=== PATIENT | female | born 1975 | race Hispanic/Latino ===

== ENCOUNTER 2019-12-17 02:40 | Observation (INO) | payer OTHER, SELFPAY ==
--- NOTE | 2019-12-17 03:00 | PC.NURSE ---
Report received from Bren Petersen prior to pt being transferred. Pt arrived to [facility] ED with c/o contractions. record, labs and notes from ED visit with chart. Pt is a vaginal deliveries, FHTs doppled per RN at [facility], SVE 4 ballotable per Pierre Petersen RN. 20g IV in [facility]. No significant or medical history.
[2019-12-17 03:06] VITALS: BP 108/55; PULSE 79
[2019-12-17] MEDS: TERBUTALINE SULFATE 1 MG/ML VIAL 0.25 MG SUB-Q (03:51)
--- NOTE | 2019-12-17 08:48 | PM.OBTRLD ---
OB - Triage/Final Diagnosis Visit Information Reason for evaluation: threatened labor Evaluation Vital signs: Vital Signs - 24 hr 12/17/19 03:06 Pulse Rate 79 Blood Pressure 108/55 L
== END 2019-12-17 05:50 | disposition home or self-care (01) ==
PROVIDERS: Admitting Provider Obstetrics & Gynecology; PCP Registered Nurse; Visit Provider Obstetrics & Gynecology
DX: O47.03 False labor before 37 completed weeks of gestation, third trimester (principal); Z3A.32 32 weeks gestation of pregnancy
CPT/HCPCS: 96372; G0378; G0379; J3105

== ENCOUNTER 2019-12-26 11:41 | Observation (INO) | payer OTHER, SELFPAY ==
[2019-12-26 12:00] VITALS: BP 108/54; PULSE 83
[2019-12-26 12:01] VITALS: BP 101/55; PULSE 88
--- NOTE | 2019-12-26 12:56 | LDADM ---
This patient, Herminia Interiano, was admitted to OB Post [facility] on 12/26/19 at 11:41. Plans for labor, pain management and were discussed with patient. Patient/family oriented to hospital policies and general routines including ID bracelet, bed and alarms, visiting hours, pain management, procedures, bathroom and other care routines, personal items, smoking policy, room service/diet and guest tray routines, infant security routines, and visiting hours. Patient/Family are encouraged to report perceived risks to care and to ask questions if they do not understand what they are told or what they should do. See OBIX for further documentation.
[2019-12-26 13:00] VITALS: BP 104/68; PULSE 81
[2019-12-26] MEDS: TERBUTALINE SULFATE 1 MG/ML VIAL 0.25 MG SUB-Q ×2 (13:05→13:37)
[2019-12-26 13:48] VITALS: BMI 36.5
[2019-12-26] MEDS: NIFEdipine 10 MG CAPSULE PO (14:09)
--- NOTE | 2019-12-26 15:12 | PM.OBTRLD ---
OB - Triage/Final Diagnosis Visit Information Reason for evaluation: threatened labor Evaluation Vital signs: Vital Signs - 24 hr 12/26/19 12:00 12/26/19 12:01 12/26/19 13:00 Pulse Rate 83 88 81 Blood Pressure 108/54 L 101/55 L 104/68
== END 2019-12-26 15:28 | disposition home or self-care (01) ==
PROVIDERS: Admitting Provider Obstetrics & Gynecology; PCP Registered Nurse; Visit Provider Obstetrics & Gynecology
DX: O47.03 False labor before 37 completed weeks of gestation, third trimester (principal); Z3A.34 34 weeks gestation of pregnancy
CPT/HCPCS: 96372; A9270; G0378; G0379; J3105

== ENCOUNTER 2020-01-03 19:42 | Observation (INO) | payer OTHER, SELFPAY ==
--- NOTE | 2020-01-03 20:06 | OBADM ---
This patient, Herminia Interiano, admitted to the OB room Labor/Delivery/Recovery 106 for observation. Patient/family oriented to hospital policies and general routines including ID bracelet, bed and alarms, visiting hours, pain management, procedures, bathroom and other care routines, personal items, smoking policy, room service/diet, and visiting hours. Patient/Family are encouraged to report perceived risks to care and to ask questions if they do not understand what they are told or what they should do.
[2020-01-03 20:15] VITALS: BP 103/86; PULSE 89
[2020-01-03 20:30] VITALS: BP 104/70; PULSE 85
--- NOTE | 2020-01-04 10:20 | PM.OBTRLD ---
OB - Triage/Final Diagnosis Visit Information Date of evaluation: 01/03/20 Reason for evaluation: threatened labor Evaluation Vital signs: Vital Signs - 24 hr 01/03/20 20:15 01/03/20 20:30 Pulse Rate 89 85 Blood Pressure 103/86 104/70
== END 2020-01-03 20:45 | disposition home or self-care (01) ==
PROVIDERS: Admitting Provider Obstetrics & Gynecology; PCP Registered Nurse; Visit Provider Obstetrics & Gynecology
DX: O47.03 False labor before 37 completed weeks of gestation, third trimester (principal); Z3A.35 35 weeks gestation of pregnancy
CPT/HCPCS: G0378; G0379

== ENCOUNTER 2020-01-25 01:54 | Inpatient (IN) | payer OTHER, SELFPAY ==
[2020-01-25] VITALS (80 sets, daily range): BP systolic 86–182; BP diastolic 40–159; PULSE 67–158; RESP 16–18; TEMP 35.7–37.4; O2SAT 98–100; BMI 39.2
--- NOTE | 2020-01-25 02:32 | LDADM ---
This patient, Herminia Interiano, was admitted to Labor/Delivery/Recovery 106 on 01/25/20 at 01:54. Plans for labor, pain management and were discussed with patient. Patient/family oriented to hospital policies and general routines including ID bracelet, bed and alarms, visiting hours, pain management, procedures, bathroom and other care routines, personal items, smoking policy, room service/diet and guest tray routines, security routines, and visiting hours. Patient/Family are encouraged to report perceived risks to care and to ask questions if they do not understand what they are told or what they should do. See OBIX for further documentation.
[2020-01-25] MEDS: LACTATED RINGERS 1,000 ML 125 ML IV CONT (02:40)
[2020-01-25] MEDS: AMPICILLIN 2 GM/NS 100 ML 2 GM/100 ML BAG IVPB (02:40)
[2020-01-25 02:41] LABS: Basophils Percent Auto 0.3 % (0.2-1.2); Eosinophils Absolute Auto 0.1 K/mm3 (0-0.3); Eosinophils Percent Auto 0.6 % (0-4.4); Hematocrit 34.3 % (37.0-47.0); Hemoglobin 11.9 g/dL (12.0-15.0); Immature Granulocyte Absolute 0.08 K/mm3 (0.00-0.031); Immature Granulocyte Percent A 0.6 % (0-0.5); Lymphocytes Absolute Auto 3.24 K/mm3 (0.9-3.2); Mean Corpuscular HGB Conc 34.7 g/dl (32-36); Mean Corpuscular Hemoglobin 27.5 pg (26-34); Mean Corpuscular Volume 79.2 fl (80-100); Mean Platelet Volume 9.5 fl (7.4-10.4); Monocytes Absolute Auto 0.6 K/mm3 (0.1-0.6); Neutrophils Absolute Auto 8.4 K/mm3 (1.3-6.7); Neutrophils Percent Auto 67.5 % (45.5-73.1); Platelet Count Result 308 k/mm3 (150-375); Red Blood Count 4.33 M/mm3 (4.2-5.4); Red Cell Distribution Width 13.5 % (11.5-14.5); White Blood Count 12.5 K/mm3 (4.5-10.0)
--- NOTE | 2020-01-25 03:17 | WPDANESEPPF ---
Anes - Initial Pre Proc Eval Procedure: C section Date/Time: 01/25/20 03:17 Surgeon: Abdon Pre Op Diagnosis: Breech presentation Pre Op Diagnosis: labor Patient Data Age: 44 Gender: F Height: Weight: Last Vital Signs Pulse 109 H 01/25/20 03:16 BP 86/40 L 01/25/20 03:16 Pulse Ox 100 01/25/20 03:16 Allergies Allergy/AdvReac Type Severity Reaction Status Date / Time No Known Allergies Allergy Unverified 08/05/13 17:11 Home Medications Medication Instructions Recorded Confirmed Type [id number] ac-dha 1 pkg PO DAILY 01/03/20 01/03/20 History Laboratory Tests 01/25/20 01/25/20 01/25/20 02:25 02:25 02:25 WBC 12.5 K/mm3 H K/mm3 (4.5-10.0) RBC 4.33 M/mm3 M/mm3 (4.2-5.4) Hgb 11.9 g/dL L g/dL (12.0-15.0) Hct 34.3 % L % (37.0-47.0) MCV 79.2 fl L fl (80-100) MCH 27.5 pg pg (26-34) MCHC 34.7 g/dl g/dl (32-36) RDW 13.5 % % (11.5-14.5) Plt Count 308 k/mm3 k/mm3 (150-375) MPV 9.5 fl fl (7.4-10.4) Immature Gran % (Auto) 0.6 % H % (0-0.5) Neut % (Auto) 67.5 % % (45.5-73.1) Lymph % (Auto) 26.0 % % (18.3-44.2) [place] % (Auto) 5.0 % % (2.6-8.5) Eos % (Auto) 0.6 % % (0-4.4) Baso % (Auto) 0.3 % % (0.2-1.2) Lymph # (Auto) 3.24 K/mm3 H K/mm3 (0.9-3.2) [place] # (Auto) 0.6 K/mm3 K/mm3 (0.1-0.6) Eos # (Auto) 0.1 K/mm3 K/mm3 (0-0.3) Baso # (Auto) 0.0 K/mm3 K/mm3 (0.0-0.1) Abs Immat Gran (auto) 0.08 K/mm3 H K/mm3 (0.00-0.031) Absolute Neuts (auto) 8.4 K/mm3 H K/mm3 (1.3-6.7) Absolute Nucleated RBC 0.0 K/mm3 K/mm3 (0.0-0.012) Nucleated RBC % 0.0 % % (0.0-0.2) RPR Pending HIV 1&2 Ab/P24 Ag 4thGn Pending Patient hx anesthesia problems: none Family hx anesthesia problems: none PMFSH Social History Social History Smoking status: Never smoker Substance use: never Gender identity (if verbalized by the patient): Female Spiritual care concerns: No Anes - Eval Final PreProcedure Day of Procedure 01/25/20 03:17 Patient weight: obese Heart: regular rate and rhythm Lungs: clear to auscultation and normal air movement Airway: Mallampati scale class II Neurological: alert and oriented Last oral intake: >/= 8 hours ASA classification: II Emergent: yes Anesthetic plan: proceed Anesthesia type and monitoring: regional epidural and standard monitoring Informed Consent: The patient's anesthetic plan and its attendant risks and benefits were discussed with the patient/family/POA. Questions were solicited and answers provided to the satisfaction of the patient/family/POA.
[2020-01-25 03:25] LABS: HIV 1/2 Ab P24 Ag Result Negative (Negative)
--- NOTE | 2020-01-25 03:25 | PM.IMHP ---
H&P: HPI History of Present Illness Chief complaint: labor Narrative: 44 y/o at 38 2/7 weeks here with SROM at 0130, subsequent contractions. Transfer of care to our practice. GBS pos. I was phoned after nursing suspected breech presentation. Interview conducted using remote [place] customer service supervisor, and communication was effective. Review of Systems Review of Systems: All systems reviewed & are unremarkable except as noted in HPI and below PMFSH Social History Social History Smoking status: Never smoker Substance use: never Gender identity (if verbalized by the patient): Female Spiritual care concerns: No Meds Home Medications and Allergies Home Medications Medication Instructions Recorded Confirmed Type 604-fpwu-oibrj ac-dha 1 pkg PO DAILY 01/03/20 01/03/20 History Allergies Allergy/AdvReac Type Severity Reaction Status Date / Time No Known Allergies Allergy Unverified 08/05/13 17:11 Vital Signs Vital Signs - 24 hr 01/25/20 02:07 01/25/20 02:16 01/25/20 02:31 Pulse Rate 75 93 89 Blood Pressure 129/70 124/95 H 133/58 L Pulse Oximetry 01/25/20 02:45 01/25/20 02:51 01/25/20 02:54 Pulse Rate 84 76 Blood Pressure 117/64 133/70 Pulse Oximetry 100 01/25/20 02:56 01/25/20 02:57 01/25/20 02:58 Pulse Rate 85 84 Blood Pressure 111/58 L 129/64 Pulse Oximetry 100 01/25/20 03:00 01/25/20 03:01 01/25/20 03:02 Pulse Rate 87 88 Blood Pressure 123/59 L 115/68 Pulse Oximetry 100 01/25/20 03:05 01/25/20 03:06 01/25/20 03:07 Pulse Rate 85 80 Blood Pressure 118/76 119/63 Pulse Oximetry 100 01/25/20 03:10 01/25/20 03:11 01/25/20 03:13 Pulse Rate 158 H 82 Blood Pressure 99/70 L 139/100 H Pulse Oximetry 100 01/25/20 03:16 01/25/20 03:17 01/25/20 03:20 Pulse Rate 109 H 97 Blood Pressure 86/40 L 99/60 L 118/93 H Pulse Oximetry 100 01/25/20 03:21 01/25/20 03:23 Pulse Rate 110 H Blood Pressure 126/42 L Pulse Oximetry 100 Exam Const: Orientation/consciousness: patient oriented x3 Other: Well-developed, well-nourished female in no acute distress. Neck: Thyroid: thyroid normal Lymphatic: no lymphadenopathy noted (in neck, axilla or inguinal nodes) Resp: Effort & Inspection: normal respiratory effort Auscultation: clear to auscultation bilaterally Cardio: Rate: regular rate Rhythm: regular rhythm Heart sounds: S1 normal heart sound present and S2 normal heart sound present GI: Other: ABD: Soft, nontender, nondistended. No guarding or rebound tenderness. No hepatosplenomegaly. Gravid. FHR with occasional variable deceleration. TOCO: contractions every 2-4 min. Bedside US performed by me confirms kacy breech presentation. : General: Yes no CVA tenderness Other: Cervix 6/90/-1, breech. Back/Spine/Pelvis: Back: no CVA tenderness Skin: General skin exam: normal color and no rashes or lesions noted Neuro: General: patient oriented x3 Extrem: Other: Extremities: nontender with no edema Psych: Mental Status: mental status grossly normal Affect: normal affect H&P: Results Labs Labs: Short CBC 01/25/20 Range/Units 02:25 WBC 12.5 H (4.5-10.0) K/mm3 Hgb 11.9 L (12.0-15.0) g/dL Hct 34.3 L (37.0-47.0) % Plt Count 308 (150-375) k/mm3 Assessment and Plan Assessment and plan (1) Breech presentation: Code(s): O32.1XX0 - Maternal care for breech presentation, not applicable or unspecified Status: Acute Assessment and Plan: We reviewed increased risks of morbidity in the setting of breech vaginal delivery. I offered primary . Furthermore, she would like permanent contraception with tubal ligation. She understands there are temporary methods of contraception available to her. She understands that there are nonsurgical options as well as surgical options. She understands that tubal ligation
[2020-01-25] MEDS: ceFAZolin 3 GM/D5W 100 ML 100 ML IVPB (03:35)
--- NOTE | 2020-01-25 04:32 | PM.OBPRVD ---
OB - Delivery Note Procedure Delivery date: 01/25/20 Procedure: Procedures Operation Date: 01/25/20 03:20 Actual Procedures Side Surgeon p Section Not Applicable Singh Coppola MD Primary LTCS with bilateral tubal ligation via modified Rosie technique Delivery monitor: external FHT and external uterine Route of delivery: (LTCS) Estimated blood loss (mL): 580 Anesthesia type: Epidural Disposition: PACU Complications: None Narrative: The patient was taken to the operating room where she was prepared and draped in the usual sterile fashion in dorsal supine position with a leftward tilt. She received cefazolin preoperatively. Epidural anesthesia was found to be adequate. A Pfannenstiel skin incision was made with a scalpel and was carried through to the underlying layer of the fascia. The fascia was incised in the midline and the incision was extended laterally. The fascia was dissected free of the underlying rectus muscles. The rectus muscles were in the midline. The peritoneum was identified, tented up and entered sharply. The peritoneal incision was extended superiorly and inferiorly with good visualization of the bladder. The bladder blade was placed. The vesicouterine peritoneum was identified, tented up and entered sharply. The incision was extended laterally and the bladder flap was developed. The bladder blade was replaced. The uterus was then incised sharply in a transverse fashion along the lower uterine segment. The incision was extended laterally. The infant's breech was delivered atraumatically to the sterile field to the level of the scapulae. The arms were swept across the chest and delivered. The head was gently flexed and easily delivered. The nose and mouth were bulb suctioned. After a delay, the cord was clamped and cut. The infant was handed off the field. Cord blood was collected. The placenta was removed manually and was passed off the field. The uterus was exteriorized and cleared of all clots and debris. The uterine incision was reapproximated using 0 Monocryl in a running, locked fashion. A second layer of the same suture was required for hemostasis. Excellent hemostasis resulted as did excellent reapproximation of the normal anatomy. The left fallopian tube was then identified by following it out to the fimbriated end. It was grasped in the midportion with a [place] clamp and a loop of tube was ligated with a free tie of 0 plain gut. The tubal segment was then transected and the specimen was passed off to be sent to pathology. Hemostasis was excellent. Attention was turned to the right fallopian tube which was similarly identified, ligated and transected. Once again, excellent hemostasis resulted. The uterus was returned the abdomen. The pelvis was irrigated copiously with warmed normal saline. Rigorous hemostasis was assured. The fascial layer was reapproximated using 0 Vicryl in a running fashion. The skin was closed with a running, subcuticular stitch of 4 0 Vicryl. Dermaflex was applied externally. Sponge, lap, needle and instrument counts were correct. The patient was taken to the recovery room in stable condition. The infant went to the nursery in stable condition. I was present and scrubbed through the entire procedure. Baby Date of : 01/25/20 Time of : 03:56 Weeks of gestation at delivery: 38 gender: Female Weight (pounds): 7 Weight (ounces): 4 presentation: kacy breech Placenta delivery description: Manual Removal and Normal Configuration cord vessel description: 3 Vessels score one minute: 8 score five minutes: 9
--- NOTE | 2020-01-25 04:36 | PM.OBDSVD ---
DS: Diagnosis Admitting Diagnosis Admitting Diagnosis: SROM GBS colonization Desired sterility Discharge Diagnosis (1) GBS (group B Streptococcus carrier), +RV culture, currently : Code(s): O99.820 - Streptococcus B carrier state complicating Status: Acute (2) SROM (spontaneous rupture of membranes): Status: Acute (3) Unwanted fertility: Code(s): Z30.09 - Encounter for other general counseling and advice on contraception Status: Acute (4) Breech presentation: Code(s): O32.1XX0 - Maternal care for breech presentation, not applicable or unspecified Status: Acute OB - DS: Summary OB Procedures : None OB Procedures Intrapartum: Spontaneous Vag Delivery OB Procedures: : None Peripartum Data Procedures: Procedures Operation Date: 01/25/20 03:20 Actual Procedures Side Surgeon p Section Not Applicable Singh Coppola MD Time Spent with Patient Time attestation: Total time spent providing and/or coordinating discharge services: DS: Data Data Completed and Pending Pending studies at discharge: Pending at discharge 01/25/20 04:34 Surgical [PTH] Routine Labs on day of discharge: Labs from last 24 hours 01/25/20 01/25/20 01/25/20 02:25 02:25 02:25 WBC 12.5 H RBC 4.33 Hgb 11.9 L Hct 34.3 L MCV 79.2 L MCH 27.5 MCHC 34.7 RDW 13.5 Plt Count 308 MPV 9.5 Immature Gran % (Auto) 0.6 H Neut % (Auto) 67.5 Lymph % (Auto) 26.0 [place] % (Auto) 5.0 Eos % (Auto) 0.6 Baso % (Auto) 0.3 Lymph # (Auto) 3.24 H [place] # (Auto) 0.6 Eos # (Auto) 0.1 Baso # (Auto) 0.0 Abs Immat Gran (auto) 0.08 H Absolute Neuts (auto) 8.4 H Absolute Nucleated RBC 0.0 Nucleated RBC % 0.0 RPR Pending HIV 1&2 Ab/P24 Ag 4thGn Blood Type B Positive Antibody Screen Negative 01/25/20 02:25 WBC RBC Hgb Hct MCV MCH MCHC RDW Plt Count MPV Immature Gran % (Auto) Neut % (Auto) Lymph % (Auto) [place] % (Auto) Eos % (Auto) Baso % (Auto) Lymph # (Auto) [place] # (Auto) Eos # (Auto) Baso # (Auto) Abs Immat Gran (auto) Absolute Neuts (auto) Absolute Nucleated RBC Nucleated RBC % RPR HIV 1&2 Ab/P24 Ag 4thGn Negative Blood Type Antibody Screen Discharge Plan Discharge Attending physician on discharge: Singh Coppola Consulting providers: Luke Valle Discharging Clinician: Nikunj Bernstein Patient Disposition: Home, Self-Care Activity: may shower, may drive after 2 weeks and pelvic rest Diet: regular Wound Care Instructions: incision open to air Discharge Instructions: Call or return if temperature above 100.4? F, increased abdominal pain, increased vaginal bleeding or any new problems. Education: Mom and Baby Guide Given to: Mother Follow-Up: Call your delivering provider's office for an appointment to be seen in: Call MD office Mom and baby should come to the [facility] for the follow-up appointment. Appointment Date/Time: January 28, 2020 at 9:00 am What to expect at your follow-up visit: Physical Assessment Call [phone] if you are unable to keep your appointment time. BREAST CARE: 1. Wear a snug supportive bra. 2. For engorgement discomfort: Breast Feeding: A. Apply warm moist washcloths B. Express milk as needed to relieve engorgement C. Wear loose clothing 3. For sore nipples: A. Identify correct latch-on B. Apply warm moist washcloths before and after nursing C. Air dry nipples after nursing D. May apply Lansinoh cream to nipples ABDOMINAL INCISION: (if applicable) 1. Allow incision to air dry 2. Do NOT use lotions for powders on your incision 3. When showering, allow soap and water to run over the incision, but do not wash incision PERINEAL CARE: 1. Until bleeding stops, use your jordan bottle
[2020-01-25] MEDS: OXYTOCIN 30 UNITS/NS 500 ML 30 UNITS/500 ML BAG 125 UNITS IV CONT (05:49)
--- NOTE | 2020-01-25 07:00 | PC.NURSE ---
PT arrived on unit via stretcher accompanied by significant other and and taken to room 286. PT Introductions made and plan of care discussed per post op c section, pain management, breast feeding, daily care activities and security. PT oriented to room and surrounding area. Welcome packet discussed. PT ' significant other speaks fluent [place] while pt is less fluent. Pashto language line available if and when significant other goes home. PT and Alberto verbalized understanding of such instructions.
[2020-01-25] MEDS: SIMETHICONE 80 MG TAB.CHEW PO ×3 (07:44→16:52)
[2020-01-25] MEDS: IBUPROFEN 600 MG TABLET PO ×3 (07:45→22:34)
[2020-01-25] MEDS: LANOLIN (LANSINOH) 7.5 GM CREAM 1 APPLIC TOPICAL (09:54)
[2020-01-25] MEDS: DEXTROSE 5%/0.45% SOD CHL 1,000 ML 125 ML IV CONT (10:38)
[2020-01-25] MEDS: DOCUSATE SODIUM 100 MG CAPSULE PO (16:51)
[2020-01-26] MEDS: IBUPROFEN 600 MG TABLET PO ×3 (04:35→20:18)
[2020-01-26 05:00] VITALS: BP 101/60; PULSE 76; RESP 16; TEMP 36.5; O2SAT 100
[2020-01-26 05:25] LABS: Basophils Percent Auto 0.2 % (0.2-1.2); Eosinophils Absolute Auto 0.1 K/mm3 (0-0.3); Eosinophils Percent Auto 0.6 % (0-4.4); Hematocrit 26.6 % (37.0-47.0); Hemoglobin 8.8 g/dL (12.0-15.0); Immature Granulocyte Absolute 0.08 K/mm3 (0.00-0.031); Immature Granulocyte Percent A 0.7 % (0-0.5); Lymphocytes Absolute Auto 2.23 K/mm3 (0.9-3.2); Lymphocytes Percent Auto 20.5 % (18.3-44.2); Mean Corpuscular HGB Conc 33.1 g/dl (32-36); Mean Corpuscular Hemoglobin 27.6 pg (26-34); Mean Corpuscular Volume 83.4 fl (80-100); Mean Platelet Volume 9.9 fl (7.4-10.4); Monocytes Absolute Auto 0.6 K/mm3 (0.1-0.6); Monocytes Percent Auto 5.9 % (2.6-8.5); Neutrophils Absolute Auto 7.9 K/mm3 (1.3-6.7); Neutrophils Percent Auto 72.1 % (45.5-73.1); Platelet Count Result 255 k/mm3 (150-375); Red Blood Count 3.19 M/mm3 (4.2-5.4); Red Cell Distribution Width 13.7 % (11.5-14.5); White Blood Count 10.9 K/mm3 (4.5-10.0)
[2020-01-26 06:54] LABS: Rapid Plasma Reagin Non-Reactive (NonReactive)
--- NOTE | 2020-01-26 07:19 | PM.OBPNVD ---
OB - PN: Subj Subjective Date/time seen: 01/26/20 07:19 Patient comments: no complaints and pain well controlled baby status: doing well and nursing well OB - PN: Obj Data Labs CBC & Chem 7: 01/26/20 04:40 Labs: Laboratory Results - last 24 hr 01/25/20 01/26/20 02:25 04:40 WBC 10.9 H RBC 3.19 L Hgb 8.8 L D Hct 26.6 L MCV 83.4 D MCH 27.6 MCHC 33.1 RDW 13.7 Plt Count 255 MPV 9.9 Immature Gran % (Auto) 0.7 H Neut % (Auto) 72.1 Lymph % (Auto) 20.5 [place] % (Auto) 5.9 Eos % (Auto) 0.6 Baso % (Auto) 0.2 Lymph # (Auto) 2.23 [place] # (Auto) 0.6 Eos # (Auto) 0.1 Baso # (Auto) 0.0 Abs Immat Gran (auto) 0.08 H Absolute Neuts (auto) 7.9 H Absolute Nucleated RBC 0.0 Nucleated RBC % 0.0 RPR Non-reactive OB - PN A/P Plan day: 1 Plan: routine care Time Spent With Patient Time: Total time spent is greater than 50% in coordination of care (as documented) at patient's floor/unit and/or counseling patient: Time with patient: less than 15 minutes Review of Systems Review of Systems: All systems reviewed & are unremarkable except as noted in HPI and below Exam Const: General: no acute distress Eyes: General: appearance normal, both eyes and all related structures Neck: Neck: supple and no JVD Thyroid: thyroid normal Resp: Effort & Inspection: normal respiratory effort Auscultation: clear to auscultation bilaterally Cardio: Rate: regular rate Rhythm: regular rhythm GI: Inspection: incision (cdi) Percussion: Yes normal to percussion (fundus firm ) Skin: General skin exam: no rashes or lesions noted Extrem: General: normal to inspection and no edema Psych: Mental Status: mental status grossly normal Affect: normal affect
[2020-01-26 08:00] VITALS: BP 105/50; PULSE 84; RESP 18; TEMP 36.6
[2020-01-26] MEDS: SIMETHICONE 80 MG TAB.CHEW PO ×2 (08:30→15:23)
[2020-01-26] MEDS: MULTIVIT/MIN/PREN/FOL AC/IRON TABLET 1 TAB PO (08:30)
[2020-01-26] MEDS: POLYSACCHARIDE IRON COMPLEX 150 MG CAPSULE PO ×2 (08:30→15:24)
[2020-01-26] MEDS: DOCUSATE SODIUM 100 MG CAPSULE PO ×2 (08:30→15:24)
--- NOTE | 2020-01-26 10:45 | PC.NURSE ---
Consult with pt., mother reports she chooses to breast and bottle feed. Mother does not wish to pump. Mother reports she bottle fed until her milk came in with other children. Mother is able to latch correctly without assist. Infant can eagerly latch nursing eagerly with long rhythmic draws and occasional swallowing.
--- NOTE | 2020-01-26 14:01 | WPDANLDNPN2 ---
Anes-Prog Note L&D-Neuraxial Date/Time: 01/26/20 14:01 Neuraxial medications: epidural PF morphine Opiod-related complaints: none Patient feedback: Patient satisfied with post-operative pain management.
[2020-01-26 19:45] VITALS: BP 102/60; PULSE 79; RESP 18; TEMP 36.8
--- NOTE | 2020-01-27 07:06 | PM.OBPNVD ---
OB - PN: Subj Subjective Date/time seen: 01/27/20 07:06 Patient comments: no complaints and pain well controlled baby status: doing well and nursing well OB - PN: Obj Data Labs CBC & Chem 7: 01/26/20 04:40 OB - PN A/P Plan day: 2 Plan: routine care, discharge home and follow up 6 weeks (4 weeks) Time Spent With Patient Time: Total time spent is greater than 50% in coordination of care (as documented) at patient's floor/unit and/or counseling patient: Time with patient: less than 15 minutes Review of Systems Review of Systems: All systems reviewed & are unremarkable except as noted in HPI and below Exam Const: General: no acute distress Eyes: General: appearance normal, both eyes and all related structures Neck: Neck: supple and no JVD Thyroid: thyroid normal Resp: Effort & Inspection: normal respiratory effort Auscultation: clear to auscultation bilaterally Cardio: Rate: regular rate Rhythm: regular rhythm GI: Inspection: normal to inspection and incision (cdi) : General: Yes bladder normal to palpation External Female Exam: normal external appearance Speculum Exam - Vagina: normal vaginal discharge and No vaginal bleeding Speculum Exam - Cervix: nontender Bimanual exam- vagina & uterus: bladder normal to palpation and No Cervical tenderness present OB/external & speculum: No vaginal bleeding Skin: General skin exam: no rashes or lesions noted Extrem: General: normal to inspection and no edema Psych: Mental Status: mental status grossly normal Affect: normal affect
[2020-01-27 08:25] VITALS: BP 100/63; PULSE 76; RESP 18; TEMP 37.2
--- NOTE | 2020-01-27 08:45 | PC.NURSE ---
Mother states continues to breast and bottle feed. Mother is able to independently latch with appropriate positioning/alignment. She denies any nipple discomfort, is feeding as required and waking to feed if needed. has had several effective feedings followed with supplementation in the past 24 hours, and is currently meeting outcomes for weight, output, jaundice and feeding frequencies. Mother states she feels confident to continue current feeding plan at home. Reviewed transition to breast milk, signs of adequate intake, and engorgement/relief. Instructed to call ICP if intake/output less than required. Reviewed regular medications mother is taking. Information provided per Shirley. Reviewed community resources on the [facility] website and in the Mom/Baby guide. Information on outpatient services provided. Mother has no further questions at this time.
[2020-01-27] MEDS: MULTIVIT/MIN/PREN/FOL AC/IRON TABLET 1 TAB PO (09:50)
[2020-01-27] MEDS: IBUPROFEN 600 MG TABLET PO (09:50)
[2020-01-27] MEDS: DOCUSATE SODIUM 100 MG CAPSULE PO (09:50)
[2020-01-27] MEDS: POLYSACCHARIDE IRON COMPLEX 150 MG CAPSULE PO (09:50)
[2020-01-28 09:15] VITALS: BP 127/78; PULSE 75; RESP 18; TEMP 36.9
== END 2020-01-27 12:42 | disposition home or self-care (01) | DRG 540 ==
LOC: ANHLDR 04:38 → ANHOB2 07:12
PROVIDERS: Admitting Provider Obstetrics & Gynecology; PCP Registered Nurse; Visit Provider Obstetrics & Gynecology
PROC: 10D00Z1 Extraction of Products of Conception, Low, Open Approach (ICD-10-PCS; CPT 59514; principal; 2020-01-25 03:20)
DX: O32.1XX0 Maternal care for breech presentation, not applicable or unspecified (principal); Z37.0 Single live birth; Z3A.38 38 weeks gestation of pregnancy; Z30.2 Encounter for sterilization; O99.824 Streptococcus B carrier state complicating childbirth
CPT/HCPCS: 36415; 84112; 85025; 86592; 86703; 86850; 86900; 86901; 88302; A9270; G0432; J0131; J0290; J0690; J1100; J2274; J2405; J2590; J7120